=== PATIENT | female | born 1995 | race Caucasian/White ===

== ENCOUNTER 2024-05-07 08:37 | Day surgery (SDC) | payer OTHER ==
[2024-05-07] MEDS ORDERED: Acetaminophen 500 MG TAB ONE (08:46)
[2024-05-07] MEDS: Acetaminophen 500 MG TAB PO SCH (08:48)
[2024-05-07] MEDS: Iron Sucrose Complex 500 MG in Sodium Chloride 0.9% 250 ML 250 ML IVPB SCH (09:27)
[2024-05-07 10:18] VITALS: TEMP 98.2
[2024-05-07 14:52] VITALS: BP 142/86
== END 2024-05-07 14:49 | disposition home or self-care (01) ==
LOC: ONC/OP 08:37
PROVIDERS: ATTEND Family Medicine
DX: O99.013 Anemia complicating pregnancy, third trimester (principal); O99.891 Other specified diseases and conditions complicating pregnancy; R03.0 Elevated blood-pressure reading, without diagnosis of hypertension; Z79.899 Other long term (current) drug therapy; Z3A.28 28 weeks gestation of pregnancy; Z28.39 Other underimmunization status; Z67.91 Unspecified blood type, Rh negative
CPT/HCPCS: 96365; 96366; J1756; J7050